=== PATIENT | female | born 1980 | race Hispanic/Latino ===

== ENCOUNTER 2018-11-16 17:57 | Emergency (ER) | payer SELFPAY ==
[2018-11-16] MEDS ORDERED: Ibuprofen 800 MG TAB ONE (18:08)
[2018-11-16] MEDS ORDERED: Dexamethasone 4 mg/ml Vial ONE (18:08)
== END 2018-11-16 18:56 | disposition home or self-care (01) ==
LOC: ERS 17:57
DX: J02.9 Acute pharyngitis, unspecified (principal)
CPT/HCPCS: 87081; 87430; 99283; J1100

== ENCOUNTER 2018-11-18 11:05 | Emergency (ER) | payer SELFPAY ==
[2018-11-18] MEDS ORDERED: Dexamethasone 10 MG/ML VIAL ONE (12:08)
[2018-11-18] MEDS ORDERED: Ketorolac Tromethamine 30 MG/ML VIAL ONE (12:08)
[2018-11-18 12:43] LABS: #Lymphocytes 1.5 thou/uL (1.20-3.40); #Monocytes 1.9 thou/uL (0.11-0.59); #Neutrophils 12.1 thou/uL (1.40-6.50); %Basophils 0.2 % (0.0-1.0); %Eosinophils 0.3 % (0.0-10.0); %Lymphocytes 9.6 % (21.0-51.0); %Monocytes 12.2 % (0.0-10.0); %Neutrophils 77.7 % (42.0-75.0); Hemoglobin 15.6 g/dL (12.0-16.0); Mean Corpuscular HGB CONC 34.6 g/dL (32.0-36.0); Mean Corpuscular Hemoglobin 33.6 pg (27.0-31.0); Mean Corpuscular Volume 97.2 fL (78.0-98.0); Mean Platelet Volume 11.7 fL (7.4-10.4); Platelet Count 158 thou/uL (130-400); Red Blood Cell (RBC) Count 4.64 mill/uL (4.20-5.40); White Blood Cell (WBC) Count 15.6 thou/uL (4.8-10.8)
[2018-11-18 12:46] LABS: BHCG - Serum Negative (NEGATIVE); Pregs Control Background? CLEAR/WHITE (CLR/WHITE); Pregs Control Bar Appear? YES (CONTROL BAR)
[2018-11-18 12:48] LABS: MONO NEGATIVE CONTROL ZONE White (Negative) (White); MONO POSITIVE CONTROL Pink Line (Positive) (PINK/RED); Mononucleosis NEGATIVE (NEGATIVE)
[2018-11-18 12:59] LABS: Anion Gap 15 mmol/L (10-20); BUN (Urea Nitrogen) 16 mg/dL (7.0-18.7); Calc. Creatinine Clearance 0 mL/min (70-130); Calcium 9.7 mg/dL (7.8-10.44); Carbon Dioxide 26 mmol/L (22-29); Chloride 101 mmol/L (98-107); Estimated GFR-MDRD 82; Glucose 98 mg/dL (70-105); Potassium 3.4 mmol/L (3.5-5.1); Sodium 139 mmol/L (136-145)
--- NOTE | 2018-11-18 13:02 | CT ---
NECK CT WITH IV CONTRAST: Date: 11/18/18 COMPARISON: None. HISTORY: Sore throat. TECHNIQUE: Axial CT imaging at 2.5 mm intervals from the skull base through lung apices with IV contrast. Haji l and sagittal reformatted imaging obtained. FINDINGS: The imaged lung apices appear unremarkable. The imaged brain parenchyma appears grossly unremarkable. Imaged paranasal sinuses and mastoid air cells appear grossly unremarkable. Mild mucosal thickening is seen involving the alveolar recess of the right maxillary sinus. The palatine tonsils are enlarged and edematous bilaterally with mucosal thickening and a striated ap pearance, evidence of phlegmonous change within the palatine tonsils bilaterally. Developing abscess formation suspected in the left palatine tonsil anteriorly on axial image 25 with a focal area of gas -containing hypodensity measuring 8 mm in craniocaudal dimension. There is a similar smaller focus of hypodensity with rim enhancement within the superior aspect of the right palatine tonsil measuring i n the 5-6 mm range. The lingual tonsillar tissue is thickened and enhancing. There is minimal thickening of the epiglottis and the preepiglottic fat is mildly edematous. Hyoid bone, cricoid cartilage, and thyroid gland appear grossly unremarkable. Enlarged level IIA nodes are present bilaterally, measuring 1.4 cm short axis dimension on right and 1.5 cm short axis dimension on the left. The vascular structures of the neck appear grossly unremarka ble bilaterally. Multiple mildly enlarged posterior triangle lymph nodes are present bilaterally, left greater than ri ght. Review of the osseous structures demonstrates no worrisome lytic or blastic lesion. IMPRESSION: Bilateral palatine tonsils are enlarged, edematous, and demonstrate a striated appearance consistent with phlegmonous change. Probable early abscess formation noted bilaterally, measuring up to 1.1 cm o n the left, and 5-6 mm on the right. Adenopathy in the neck is likely reactive in nature. POS: BILL
[2018-11-18] MEDS ORDERED: Clindamycin/D5W 900 mg/50 ml Premix Bag ONE (13:33)
[2018-11-18] MEDS ORDERED: Dexamethasone 4 mg/ml Vial ONE (13:33)
== END 2018-11-18 14:01 | disposition home or self-care (01) ==
LOC: ERS 11:05
DX: J36 Peritonsillar abscess (principal); Z79.1 Long term (current) use of non-steroidal anti-inflammatories (NSAID)
CPT/HCPCS: 70491; 80048; 84703; 85025; 86308; 87081; 87430; 96361; 96365; 96375; 96376; J1100; J1885; J3490

== ENCOUNTER 2020-07-28 12:24 | Outpatient (CLI) | payer MEDICAID ==
--- NOTE | 2020-07-28 13:42 | MMO ---
Bilateral MAMMO Bilat Diag [facility]. CLINICAL HISTORY: Patient is 39 years old and is seen for diagnostic exam and pain in the right breast. The patient has no family history of breast cancer. The patient has no personal history of cancer. VIEWS: The views performed were: bilateral craniocaudal with tomosynthesis; bilateral mediolateral oblique with tomosynthesis; and bilateral mediolateral with tomosynthesis. This study has been interpreted with the assistance of computer-aided detection. MAMMOGRAM FINDINGS: The breasts are heterogeneously dense, which could obscure a lesion on mammography. There are no suspicious masses, suspicious calcifications, or new areas of architectural distortion. IMPRESSION: THERE IS NO MAMMOGRAPHIC EVIDENCE OF MALIGNANCY. A ROUTINE FOLLOW-UP MAMMOGRAM IN 1 YEAR IS RECOMMENDED. THE RESULTS OF THIS EXAM WERE SENT TO THE PATIENT. ACR BI-RADS Category 1 - Negative MAMMOGRAPHY NOTE: 1. A negative mammogram report should not delay a biopsy if a dominant of clinically suspicious mass is present. 2. Approximately 10% to 15% of breast cancers are not detected by mammography. 3. Adenosis and dense breasts may obscure an underlying neoplasm. Reported by: BALJINDER LAFLEUR MD Electonically Signed: [id number]
== END 2020-07-28 12:25 | disposition home or self-care (01) ==
LOC: BICMAMMO 12:24
PROVIDERS: ATTEND Nurse Practitioner Women's Health
DX: N64.4 Mastodynia (principal)
CPT/HCPCS: 77066; G0279

== ENCOUNTER 2022-12-17 14:45 | Outpatient (CLI) | payer BC | END 2022-12-17 14:46 | disposition home or self-care (01) | LOC: BICMAMMO 14:45 | PROVIDERS: ATTEND Family Medicine | DX: N63.10 Unspecified lump in the right breast, unspecified quadrant (principal) | CPT/HCPCS: 77066; G0279 ==